=== PATIENT | female | born 2000 | race Caucasian/White ===

== ENCOUNTER 2023-04-07 10:46 | Outpatient (REF) | payer OTHER, BC, SELFPAY | END 2023-04-07 10:47 | disposition home or self-care (01) | LOC: NFLDREF 10:46 | PROVIDERS: Visit Provider Nurse Practitioner Family | DX: R30.0 Dysuria (principal); N39.0 Urinary tract infection, site not specified | CPT/HCPCS: 87086; 87186 ==